=== PATIENT | male | born 1960 | race Caucasian/White ===

== ENCOUNTER 2018-12-12 05:28 | Day surgery (SDC) | payer BC, OTHER ==
[~2018-12-12] VITALS: Ht 185.4 cm; Wt 102.1 kg
--- NOTE | ~2018-12-12 | O ---
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 POSTOPERATIVE DIAGNOSES: Left knee degenerative chondromalacia and medial meniscus tear. PROCEDURE: Left knee arthroscopy with partial medial meniscectomy and debridement of medial compartment chondromalacia. SURGEON: Doe Nguyễn M.D. 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 Symptoms and findings are much more severe on the right side, where he has had an old ACL rupture and significant three-compartment degenerative change. He anticipates going ahead with total knee replacement at some point on the right. On the left side, the findings and symptoms are less severe. He has medial joint line pain and some narrowing on x-ray, consistent with medial compartment damage, probably including meniscus and cartilage wear. He has elected to go ahead with arthroscopic debridement of the left side, hoping for some symptomatic improvement such that he can then proceed with right total knee replacement in a more satisfactory fashion. DESCRIPTION OF PROCEDURE: The patient was taken to the operating room, where he was placed under general anesthesia. Prophylactic intravenous antibiotics were administered. The left knee and leg were meticulously prepped and draped. A thigh tourniquet was inflated to 300 mmHg. A lateral suprapatellar inflow cannula was placed. The arthroscope and probe were introduced. Various compartments were sequentially visualized and documented with arthroscopic photography. The medial compartment reveals areas of complete cartilage loss, with exposed subchondral bone and other areas of moderate cartilage damage, with grade 2-to-grade 3 cartilage wear. These areas were very gently debrided, removing the loose irregular cartilage and loose debris. Findings were more severe on the tibial plateau and somewhat less severe on the medial femoral condyle. There was diffuse degenerative tearing in the medial meniscus, which was also debrided back to a more smooth, even outer margin. There was quite a bit of [facility] [address] [place] [address] OPERATIVE REPORT Name: KHANMIKE Room #: [address] [place] [address].#: [id number] Admission: 12/12/18 ������������������ Attend Phys: Doe Nguyễn MD Discharge: ������������������ Date of : 64 Report #: [id number] loose cartilage debris in the posterior medial corner, which was evacuated. There was an area of exposed subchondral bone in the far posterior medial femoral condyle as well. The intercondylar notch revealed the cruciate ligaments to be present and functioning. There was significant bony hypertrophy and spurring causing some impingement on the ACL. A limited notchplasty was performed to relieve this pressure and for visualization. No other problems in the notch were noted. The lateral compartment was difficult to visualize as he was quite tight, but the lateral meniscus appeared to be intact and stable, with only moderate fraying along its inner margin. The cartilage surfaces on both the lateral femoral condyle and the lateral tibial plateau were in much better shape and no debridement there was necessary. The patellofemoral articulation revealed moderate grade 2 chondromalacia on both the trochlea and the patellar surface. Very gentle debridement was performed, removing the loose, irregular cartilage. The suprapatellar pouch revealed some synovial hypertrophy and cartilage debris, which was evacuated. No other significant structural abnormalities were identified. The knee was further copiously irrigated and then all excess fluid was evacuated from the knee. The knee was then injected with 80 mg of Depo-Medrol and 30 mL of 0.5% Marcaine with epinephrine. The puncture sites were closed with interrupted nylon suture. A sterile dressing was applied. The patient was awakened and returned to the recovery room in good condition. ��������������������������������������������� ���������������������������������������� By: ��������������������������������������������� [id number] Doe Nguyễn MD /nt
[~2018-12-12 05:28] MED LIST: FISH OIL 1,001000 M2 PO; NASACORT10.8 ML NASAL; TRICOR145 MG PO; VITAMIN D1000 UNIT PO; ZOCOR20 MG PO; ZYRTEC10 M5 PO
[2018-12-12 09:07] VITALS: BP 134/86
[2018-12-12 10:42] VITALS: BP 134/86
== END 2018-12-12 11:20 | disposition home or self-care (01) ==
LOC: TBA 05:28 → OR 05:28 → TBA 05:29 → OR 10:06
DX: M23.204 Derangement of unspecified medial meniscus due to old tear or injury, left knee (principal); M94.262 Chondromalacia, left knee; E78.00 Pure hypercholesterolemia, unspecified; Z98.890 Other specified postprocedural states; Z79.899 Other long term (current) drug therapy
CPT/HCPCS: 50010; 50101; 50405; 51038; 54170; 56526; 57103; 57180; 62110; 62900; 70005

== ENCOUNTER 2019-05-02 05:48 | Day surgery (SDC) | payer BC, OTHER ==
[~2019-05-02] VITALS: Ht 182.9 cm; Wt 105.7 kg
[2019-05-02 06:30] VITALS: BP 140/78
[2019-05-02 08:31] VITALS: BP 140/78
--- NOTE | 2019-05-03 10:55 | O ---
[facility] [place] [address] OPERATIVE REPORT Name: ERINMIKE Kamilla Room #: DEP [facility].#: [id number] Admission: 05/02/19 Attend Phys: Doe Nguyễn MD Discharge: 05/02/19 Date of : 64 Report #: [id number] THIS REPORT FOR: //name// CC: Doe Gallegos DATE OF SERVICE: 05/02/2019 PREOPERATIVE DIAGNOSES: Right knee medial meniscus tear, lateral meniscus tear and degenerative chondromalacia. POSTOPERATIVE DIAGNOSES: Right knee medial meniscus tear, lateral meniscus tear and degenerative chondromalacia. PROCEDURES: Right knee arthroscopy with partial medial meniscectomy and partial lateral meniscectomy and chondroplasty medial compartment, lateral compartment and patellofemoral compartment. 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 We had previously considered going ahead with total knee replacement, but he elected to begin with arthroscopic debridement in the opposite knee, which was less symptomatic. This resulted in such dramatic improvement on the left side that he changed his mind and decided to go ahead with arthroscopic debridement on the right side, hoping he could delay total joint replacement. I have explained that the clinical and radiographic findings are much worse on the right side and I expect he will have ongoing right knee symptoms. I expect eventually a total knee replacement may be the best option at this point, however, he is anxious to try arthroscopic debridement hoping to delay eventual joint replacement. He states he understands the potential risks and benefits well. DESCRIPTION OF PROCEDURE: The patient was taken to the operating room where he was placed under general anesthesia. Prophylactic intravenous antibiotics were administered. The right knee and leg were meticulously prepped and draped and a thigh tourniquet inflated to 300 mmHg. A lateral suprapatellar inflow cannula was placed. The knee was inflated with normal saline. The arthroscope and probe were introduced through parapatellar tendon approaches. Various compartments were sequentially visualized and documented with arthroscopic photography. There was rather generalized posttraumatic degenerative arthritis throughout the knee, medial compartment reveals complete loss of cartilage over most of the medial femoral condyle. There is a rough ragged irregular medial meniscus, [address] [address] OPERATIVE REPORT Name: MIKE KHAN Room #: DEP [facility].#: [id number] Admission: 05/02/19 Attend Phys: Doe Nguyễn MD Discharge: 05/02/19 Date of : 64 Report #: [id number] which was trimmed back to a more smooth even outer margin. There was moderate loose cartilage debris in the posterior medial corner, which was evacuated. There was similar, but less severe cartilage damage on the medial tibial plateau, which was trimmed and smoothed around its margin where there was some loose delaminating cartilage. Intercondylar notch revealed rather marked spurring at the anterior aspect, which caused impingement with full knee extension. This was debrided. A very limited notchplasty was performed. The anterior cruciate ligament appears to be damaged, but is partially intact. The posterior crucial ligament seems to be present. The lateral compartment reveals similar severe damage on both the lateral femoral condyle and the lateral tibial plateau. The lateral meniscus was less severely involved, but did demonstrate some degenerative fraying and tearing along its inner margin, which was debrided. There was some loose cartilage debris in the posterolateral corner, which was evacuated. The patellofemoral articulation reveals similar, but less severe cartilage damage on both the patella and the trochlear region of the femur. There is grade 2 to grade 3 damage in these areas with some cartilage remaining, but there is certainly some generalized chondromalacia where the rough ragged delaminating margins were gently smoothed leaving as much good cartilage in place as possible. The patella seemed to track nicely and appears to be stable. The suprapatellar pouch revealed some synovial hypertrophy and cartilage debris, which was evacuated. The entire knee was copiously irrigated. All excess fluid was evacuated. The knee was then injected with 80 mg of Depo-Medrol and 30 mL of 0.5% Marcaine with epinephrine. The puncture sites were closed with interrupted nylon suture. A sterile dressing was applied. The patient was awakened and returned to recovery room in good condition. <ELECTRONICALLY SIGNED> By: Doe Nguyễn MD 05/03/19 [id number] Doe Nguyễn MD /nt
== END 2019-05-02 09:05 | disposition home or self-care (01) ==
LOC: OR 05:48 → TBA 05:49 → OR 08:03
DX: M23.261 Derangement of other lateral meniscus due to old tear or injury, right knee (principal); M23.231 Derangement of other medial meniscus due to old tear or injury, right knee; M94.261 Chondromalacia, right knee; E78.00 Pure hypercholesterolemia, unspecified; Z98.890 Other specified postprocedural states; Z79.899 Other long term (current) drug therapy
CPT/HCPCS: 50010; 50101; 50405; 51038; 54170; 57103; 57180; 62110; 62900; 70005